=== PATIENT | female | born 1990 | race Caucasian/White ===

== ENCOUNTER 2017-03-27 05:48 | Emergency (ER) | payer OTHER ==
--- NOTE | ~2017-03-27 | CR20 ---
[facility] A Service of [facility] / [facility] RADIOLOGY TEXT RESULTS PATIENT: RIKA GARCIA LOCATION: [facility] : [birth year] UNIT #: [id number] AGE: [address]: Violet Olmedo MD SEX: F ORDER DR: [id number] [facility] [address] [place], [place] [address] [id number] E MR#: [id number] Acc #: [id number] NAME: RIKA GARCIA : 1990 SEX: F STUDY DATE/TIME: 03/27/2017 6:51 UNIT: [facility] ROOM: STUDY DESCRIPTION: CR Ankle Min 3 Views Lt Attending Physician: Violet Olmedo M.D. Ordering Physician: Violet Olmedo M.D. Primary Care Physician: Don Caceres M.D. MEDICAL IMAGING REPORT This report is preliminary unless electronic signature is present EXAM Left ankle 3 views HISTORY Fell this morning. History of ankle fracture 3 years ago. Lateral ankle pain. TECHNIQUE 3 views are submitted. FINDINGS An orthopedic plate transfixes an old healed fracture of the distal tibia. There is an obliquely-oriented screw through the medial malleolus and a longitudinally-oriented screw through the lateral malleolus. These are unchanged in position. No acute fractures seen. CONCLUSION Status post prior ORIF. No change in the alignment. No change in hardware and no acute fractures. Dictated by... Yahir Hough M.D. THIS IS AN ELECTRONICALLY VERIFIED REPORT Yahir Hough M.D. at 03/30/2017 5:12 PM Jailyn TD: 03/27/2017 08:44 JOB #: [id number] MEDICAL IMAGING REPORT Page 1 of 1 COPY
[~2017-03-27 05:48] MED LIST: AUGMENTIN PO; BACTRIM 400-801 TA1 PO; BCP; DOXYCYCLINE HY100 M1 PO; FLAGYL PO; METRONIDAZOLE PO; NAPROSYN500 MG PO; ORUDIS75 M1 PO; PHENERGAN PR; PHENERGAN25 MG PO; PRENATAL VITAMI1 TA4 PO; TUSSINEX PO; VICODIN 5/1 TAB 5/50 PO; VICODIN PO; ZITHROMAX1 G/PKT PO; ZOFRAN8 MG PO
== END 2017-03-27 09:03 | disposition left against medical advice (07) ==
LOC: CED 05:48
DX: S00.83XA Contusion of other part of head, initial encounter (principal); M25.572 Pain in left ankle and joints of left foot; W16.012A Fall into swimming pool striking water surface causing other injury, initial encounter; Y92.009 Unspecified place in unspecified non-institutional (private) residence as the place of occurrence of the external cause
CPT/HCPCS: 73610; 99283

== ENCOUNTER 2017-05-03 16:46 | Emergency (ER) | payer OTHER | END 2017-05-03 19:00 | disposition left against medical advice (07) | LOC: CED 16:46 | DX: Z53.21 Procedure and treatment not carried out due to patient leaving prior to being seen by health care provider (principal) ==